=== PATIENT | male | born 1980 | race Caucasian/White ===

== ENCOUNTER → 2023-12-23 | Emergency (ER) | payer OTHER ==
[~2023-12-23] VITALS: Ht 172.7 cm; Wt 68.0 kg
[~2023-12-23] MED LIST: ACETAMINOPHEN 325 MG TABLET PO PRN; DEXAMETHASONE SODIUM PHOSPHATE 4 MG/ML VIAL IV STA; FAMOtidine 20 MG TABLET PO SCH; KETOROLAC TROMETHAMINE 30 MG VIAL IV STA; MEPERIDINE HCL/PF 50 MG/ML VIAL IM STA; MEPERIDINE HCL/PF 50 MG/ML VIAL IV STA; NORFLEX100MG; PROMETHAZINE HCL 25 MG/ML AMPUL IM STA; [UNRECOGNIZED DRUG - OTHER] PO
[2023-12-24 07:21] VITALS: BP 123/86; O2SAT 99
== END | disposition left against medical advice (07) ==
LOC: ER 19:35
DX: S20.20XA Contusion of thorax, unspecified, initial encounter (principal); S27.2XXA Traumatic hemopneumothorax, initial encounter; W19.XXXA Unspecified fall, initial encounter; Y93.89 Activity, other specified; Y92.488 Other paved roadways as the place of occurrence of the external cause; Y99.8 Other external cause status